=== PATIENT | female | born 1985 ===

== ENCOUNTER 2018-05-11 13:06 | Emergency (ER) | payer OTHER ==
[2018-05-11 13:26] VITALS: BP 110/72; PULSE 72; RESP 18; TEMP 99.3; O2SAT 98
--- NOTE | 2018-05-11 14:05 | ED PDOC ---
HPI: Influenza Time Seen by Provider: 05/11/18 13:56 Chief Complaint: Cough, Cold, Congestion Chief Complaint (Provider): flu-like symptoms History Per: Patient Exam Limitations: no limitations Onset/Duration Of Symptoms: Days (5x days) Sick Contacts (Context): None Additional complaint(s):: 32 year old female with no pertinent past medical history presents to the ED for an evaluation of flu-like symptoms that started 4x days ago. Patient reports having a cough, sore throat, and bodyaches and has taken theraflu with no relief. Patient presents to the ED for confirmation that her symptoms are not worsening. Patient is unsure if she had a fever at home. Otherwise, patient denies having ill contacts, a history of asthma, and smoking. PMD: None provided. Past Medical History Reviewed: Historical Data, Nursing Documentation, Vital Signs Vital Signs: Last Vital Signs Temp 99.3 F 05/11/18 13:24 Pulse 72 05/11/18 13:24 Resp 18 05/11/18 13:24 BP 110/72 05/11/18 13:24 Pulse Ox 98 05/11/18 13:24 ED Report Viewed: Yes - Medical History PMH: No Chronic Diseases - Family History Family History: States: No Known Family Hx - Social History Current smoker - smoking cessation education provided: No Alcohol: None Drugs: Denies - Home Medications Home Medications: Ambulatory Orders Medication Instructions Recorded Ibuprofen [Motrin] 600 mg PO Q8 PRN #21 tab 05/11/18 Promethazine/Codeine 5 ml PO Q12 PRN #100 ml 05/11/18 [Codeine/Promethazine 10 MG/5 Ml-6.25 MG/5 Ml] guaiFENesin [Robitussin] 20 ml PO Q6 PRN #400 ml 05/11/18 - Allergies Allergies/Adverse Reactions: Allergies Allergy/AdvReac Type Severity Reaction Status Date / Time No Known Allergies Allergy Verified 05/11/18 13:24 Review of Systems ROS Statement: Except As Marked, All Systems Reviewed And Found Negative Constitutional: Positive for: Other (bodyaches) ENT: Positive for: Throat Pain Respiratory: Positive for: Cough Physical Exam - Reviewed Nursing Documentation Reviewed: Yes Vital Signs Reviewed: Yes - Physical Exam Appears: Positive for: Well, Non-toxic, No Acute Distress Head Exam: Positive for: ATRAUMATIC, NORMOCEPHALIC Skin: Positive for: Normal Color, Warm, Dry Eye Exam: Positive for: Normal appearance ENT: Positive for: Normal ENT Inspection. Negative for: Pharyngeal Erythema Cardiovascular/Chest: Positive for: Regular Rate, Rhythm Respiratory: Positive for: Normal Breath Sounds (lungs clear to auscultation) Neurologic/Psych: Positive for: Alert, Oriented (3x) Medical Decision Making Medical Decision Makin:56 Initial impression: 32 year old female with flu-like symptoms Plan: Discussed with patient that tamiflu works within 48x hours of flu. Will write a prescription for other medications to help with symptoms. Scribe Attestation: Documented byGabriella Newby, acting as a scribe for Juan Hunt PA-C. Provider Scribe Attestation: All medical record entries made by the Scribe were at my direction and personally dictated by me. I have reviewed the chart and agree that the record accurately reflects my personal performance of the history, physical exam, medical decision making, and the department course for this patient. I have also personally directed, reviewed, and agree with the discharge instructions and disposition. - ECG O2 Sat by Pulse Oximetry: 98 (RA) Pulse Ox Interpretation: Normal Disposition - Clinical Impression Clinical Impression: Flu-like symptoms - Patient ED Disposition Is Patient to be Admitted: No - Disposition Disposition: Routine/Home Disposition Time: 13:50 Condition: FAIR Prescriptions: guaiFENesin [Robitussin] 20 ml PO Q6 PRN #400 ml PRN Reason: Cough Ibuprofen [Motrin] 600 mg PO Q8 PRN #21 tab PRN Reason: Pain, Moderate (4-7) Promethazine/Codeine [Codeine/Promethazine 10 MG/5 Ml-6.25 MG/5 Ml] 5 ml PO Q12 PRN #100 ml PRN Reason: Cough Instructions: Flu Forms: [facility] ED School/Work Excuse
== END 2018-05-11 14:19 | disposition home or self-care (01) ==
LOC: H.ER 13:06
DX: J11.1 Influenza due to unidentified influenza virus with other respiratory manifestations (principal)